=== PATIENT | male | born 1995 | race Caucasian/White ===

== ENCOUNTER 2016-12-20 02:15 | Emergency (ER) | payer SELFPAY ==
[2016-12-20] MEDS ORDERED: ALBUTEROL NEB 2.5 MG/3 ML INH ONE (02:18)
[2016-12-20] MEDS ORDERED: PROPARACAINE 0.5% OPHTH DROPS 15 ML ONE (02:35)
[2016-12-20] MEDS ORDERED: PROPARACAINE 0.5% OPHTH DROPS 15 ML EACHEYE STA (02:35)
[2016-12-20] MEDS ORDERED: IBUPROFEN 400 MG TABLET PO STA (02:57)
[2016-12-20] MEDS ORDERED: ERYTHROMYCIN OPHTH OINT 1 GM TUBE EACHEYE STA (02:57)
[2016-12-20] MEDS ORDERED: HYDROcod/ACET 5/325 Prepack 6 PO STA (02:57)
[2016-12-20] MEDS ORDERED: HYDROcod/ACET 5/325 Prepack 6 PO ONE (03:03)
[2016-12-20] MEDS ORDERED: IBUPROFEN 400 MG TABLET PO ONE (03:03)
[2016-12-20] MEDS ORDERED: ERYTHROMYCIN OPHTH OINT 1 GM TUBE ONE (03:04)
== END 2016-12-20 03:28 | disposition home or self-care (01) ==
DX: H16.133 Photokeratitis, bilateral (principal); W89.8XXA Exposure to other man-made visible and ultraviolet light, initial encounter; S05.01XA Injury of conjunctiva and corneal abrasion without foreign body, right eye, initial encounter; S05.02XA Injury of conjunctiva and corneal abrasion without foreign body, left eye, initial encounter; X58.XXXA Exposure to other specified factors, initial encounter; Y93.89 Activity, other specified; Y99.0 Civilian activity done for income or pay
CPT/HCPCS: 99283; A9270; J3490

== ENCOUNTER 2017-03-25 11:56 | Emergency (ER) | payer SELFPAY ==
[2017-03-25] MEDS ORDERED: IBUPROFEN 800 MG TABLET PO STA (12:47)
[2017-03-25] MEDS ORDERED: IPRATROPIUM/ALBUTEROL 3 ML NEB INH STA (12:47)
[2017-03-25] MEDS ORDERED: ONDANSETRON 4 MG/2 ML VIAL IVP STA (12:47)
[2017-03-25] MEDS ORDERED: SODIUM CHLORIDE 0.9% 1,000 ML IV ONE (12:47)
[2017-03-25] MEDS ORDERED: ONDANSETRON 4 MG/2 ML VIAL ONE (13:09)
[2017-03-25] MEDS ORDERED: IBUPROFEN 800 MG TABLET PO ONE (13:10)
[2017-03-25] MEDS ORDERED: ALBUTEROL NEB 2.5 MG/3 ML INH STA (13:38)
[2017-03-25] MEDS ORDERED: methylPREDNISolone SUCCINATE 125 MG/2 ML VIAL IVP STA (13:38)
[2017-03-25] MEDS ORDERED: cefTRIAXone 500 MG VIAL IVP STA (13:38)
[2017-03-25] MEDS ORDERED: cefTRIAXone 1 GM VIAL ONE (14:00)
[2017-03-25] MEDS ORDERED: methylPREDNISolone SUCCINATE 125 MG/2 ML VIAL IVP ONE (14:00)
== END 2017-03-25 14:59 | disposition home or self-care (01) ==
DX: J18.9 Pneumonia, unspecified organism (principal); J45.909 Unspecified asthma, uncomplicated; R09.02 Hypoxemia; E87.2 Acidosis
CPT/HCPCS: 36415; 71020; 80053; 83605; 83690; 85025; 87275; 87276; 94640; 96361; 96374; 96375; 99284; A9270; J7613; J7620

== ENCOUNTER 2017-06-05 21:54 | Emergency (ER) | payer OTHER ==
--- NOTE | 2017-06-05 22:09 | ED Physician Documentation ---
PD HPI HEENT - Stated complaint Stated Complaint: RINGING IN RT EAR - Chief complaint Chief Complaint: Heent - History obtained from History obtained from: Patient - History of Present Illness Timing - onset: How many weeks ago (1) Timing - duration: Weeks (1) Timing - details: Abrupt onset, Constant, Waxing and waning Pain level max: 0 Pain level now: 0 Location: Right ear Improves: Nothing Worsens: Other (no exacerbating factors) Associated symptoms: No: Fever, Congestion, Rhinorrhea, Headache Similar symptoms before: Has not had sx before Recently seen: Not recently seen - Additional information Additional information: after working in a particularly loud environment 1 week ago, patient experienced right ear ringing sound which has persisted since that time. He is able to sleep, but he has become increasingly distracted and uncomfortable with the persistence of the ringing sound. He has not been seen in outpatient setting ; says he has no doctor and no insurance. Denies specific injury, denies pain. Review of Systems Constitutional: reports: Sweats Ears: reports: Tinnitus/ringing. denies: Loss of hearing, Ear pain, Drainage/ discharge Nose: reports: Reviewed and negative PD PAST MEDICAL HISTORY - Past Medical History Cardiovascular: None Respiratory: Asthma Neuro: None Endocrine/Autoimmune: None GI: GERD : None HEENT: None Psych: None Musculoskeletal: None Derm: None - Past Surgical History Past Surgical History: No - Present Medications Home Medications: Ambulatory Orders Medication Instructions Recorded Confirmed Erythromycin Base [Erythromycin] 1 applic OP Q4H #1 tub 12/20/16 Doxycycline Hyclate 100 mg PO BID #14 tablet 03/25/17 predniSONE [Deltasone] 60 mg PO DAILY 5 Days 03/25/17 - Allergies Allergies/Adverse Reactions: Allergies Allergy/AdvReac Type Severity Reaction Status Date / Time shellfish derived Allergy Hives Verified 06/05/17 21:59 seafood Allergy Severe Hives Uncoded 06/05/17 21:59 - Social History Does the pt smoke?: No Smoking Status: Never smoker Does the pt drink ETOH?: No Does the pt have substance abuse?: No - Immunizations Immunizations are current?: Yes Immunizations: TDAP >10years/unknown - POLST Patient has POLST: No PD ED PE NORMAL - Vitals Vital signs reviewed: Yes - General General: Alert and oriented X 3, No acute distress, Well developed/nourished - HEENT HEENT: Ears normal Results - Vitals Vitals: Vital Signs - 24 hr 06/05/17 06/05/17 21:57 22:53 Temperature 36.5 C 36.4 C L Heart Rate 64 61 Respiratory 16 18 Rate Blood Pressure 106/63 114/57 L O2 Saturation 99 95 Oxygen O2 Source Room air PD MEDICAL DECISION MAKING - ED course Complexity details: considered differential, d/w patient ED course: No abnormality on exam, specifically bilateral TM appear normal without loss of landmarks, erythema, dullness, hemotympanum, abnormality of external auditory canals, and no evidence of TM perforation. I advised patient he needs to be seen by ENT, and that he would likely best accomplish this by being seen by a general practitioner first, such as at the [facility] or [facility]. Departure - Departure Disposition: 01 Home, Self Care Clinical Impression: Tinnitus of right ear Condition: Good Instructions: Tinnitus Follow-Up: [facility] [Provider Group] [facility] [Provider Group] Discharge Date/Time: 06/05/17 22:55
[2017-06-05 22:53] VITALS: BP 114/57
== END 2017-06-05 22:55 | disposition home or self-care (01) ==
LOC: ED 21:54
DX: H93.11 Tinnitus, right ear (principal)
CPT/HCPCS: 99281; 99283

== ENCOUNTER 2017-12-16 22:47 | Emergency (ER) | payer MEDICAID ==
[2017-12-16] MEDS ORDERED: FAMOTIDINE 20 MG TABLET PO STA (22:58)
[2017-12-16] MEDS ORDERED: LIDOCAINE VISCOUS 2% 15 ML UDC MM STA (22:58)
[2017-12-16] MEDS ORDERED: MAG HYDROX/AL HYDROX/SIMETH 30 ML UDC PO STA (22:58)
--- NOTE | 2017-12-16 23:09 | ED Physician Documentation ---
PD HPI ABD PAIN - Stated complaint Stated Complaint: MED REACTION - Chief complaint Chief Complaint: General - History obtained from History obtained from: Patient - History of Present Illness Timing - onset: How many days ago (2) Timing - details: Gradual onset, Still present Quality: Sharp, Stabbing Location: Epigastric Worsened by: Eating Associated symptoms: Nausea. No: Fever, Vomiting, Hematemesis Similar symptoms before: Has not had sx before Recently seen: Not recently seen - Additional information Additional information: Patient is a 21 year old male with no significant past medical history who is presenting to the emergency department for epigastric and substernal pain. Patient states that he has been on clindamycin for almost 2 weeks and over the last few days he has developed worsening substernal pain that feels like heartburn. Review of Systems Constitutional: denies: Fever, Chills Eyes: denies: Decreased vision Ears: denies: Ear pain, Drainage/discharge Throat: reports: Sore throat Cardiac: denies: Palpitations Respiratory: denies: Dyspnea, Cough, Wheezing GI: reports: Nausea. denies: Vomiting : reports: Reviewed and negative Skin: denies: Rash, Lesions Musculoskeletal: reports: Reviewed and negative Neurologic: reports: Reviewed and negative Psychiatric: reports: Reviewed and negative Immunocompromised: denies: Immunocompromised PD PAST MEDICAL HISTORY - Past Medical History Cardiovascular: None Respiratory: Asthma Neuro: None Endocrine/Autoimmune: None GI: GERD : None HEENT: None Psych: None Musculoskeletal: None Derm: None - Past Surgical History Past Surgical History: No - Present Medications Home Medications: Ambulatory Orders Medication Instructions Recorded Confirmed Erythromycin Base [Erythromycin] 1 applic OP Q4H #1 tub 12/20/16 Doxycycline Hyclate 100 mg PO BID #14 tablet 03/25/17 predniSONE [Deltasone] 60 mg PO DAILY 5 Days tablet 03/25/17 Omeprazole 20 mg PO DAILY #20 capsule. 12/16/17 - Allergies Allergies/Adverse Reactions: Allergies Allergy/AdvReac Type Severity Reaction Status Date / Time shellfish derived Allergy Hives Verified 12/16/17 22:57 seafood Allergy Severe Hives Uncoded 06/05/17 21:59 - Social History Does the pt smoke?: No Smoking Status: Never smoker Does the pt drink ETOH?: No Does the pt have substance abuse?: No - Immunizations Immunizations are current?: Yes Immunizations: TDAP >10years/unknown - POLST Patient has POLST: No PD ED PE NORMAL - Vitals Vital signs reviewed: Yes - General General: Well developed/nourished - HEENT HEENT: Atraumatic, PERRL - Neck Neck: Supple, no meningeal sign, No adenopathy - Cardiac Cardiac: RRR, No murmur - Respiratory Respiratory: No respiratory distress, Clear bilaterally - Abdomen Abdomen: Soft, Non tender, Non distended - Derm Derm: Normal color, Warm and dry, No rash - Extremities Extremities: No deformity, No edema - Neuro Neuro: Alert and oriented X 3, No motor deficit, No sensory deficit, Normal speech PD ED PE EXPANDED - General General: Alert, In Pain - HEENT HEENT: Pharyngeal erythema Results - Vitals Vitals: Vital Signs - 24 hr 12/16/17 12/16/17 22:54 23:26 Temperature 36.4 C L 36.8 C Heart Rate 64 70 Respiratory 17 18 Rate Blood Pressure 129/76 121/68 O2 Saturation 100 98 Oxygen O2 Source Room air PD MEDICAL DECISION MAKING - ED course Complexity details: reviewed old records, reviewed results, re-evaluated patient , considered differential, d/w patient ED course: patient was seen and examined at bedside. Patient's symptoms were likely secondary to pill esophagitis. Patient was treated with pepcid, maalox and viscous lidocaine with moderate relief. Patient's mouth showed no sign of infection and his clindamycin was discontinued. patient required no further work up and was stable for discharge with outpatient follow up. Departure - Departure Disposition: 01 Home, Self Care Clinical Impression: Pill esophagitis Condition: Good Instructions: Esophagitis Follow-Up: primary,care provider [Other] - Within 3 Days Prescriptions: Omeprazole 20 mg PO DAILY #20 capsule. Comments: Your symptoms today are being caused by pill esophagitis. You should stop taking the clindamycin. You will need to be on acid suppression therapy for the next 10 days or until your symptoms improve. You are being prescribed omeprazole. You can also take pepcid and maalox. You should follow up with your doctor if your symptoms persist. You should also avoid spicey and acidic foods (coffee, juice, alcohol) you may return to the emergency department at any time for new, worsening or uncontrollable symptoms. Discharge Date/Time: 12/16/17 23:25
[2017-12-16 23:38] VITALS: BP 121/68
== END 2017-12-16 23:25 | disposition home or self-care (01) ==
LOC: ED 22:47
DX: K20.8 Other esophagitis (principal)
CPT/HCPCS: 99283; A9270

== ENCOUNTER 2019-03-21 14:45 | Emergency (ER) | payer BC, MEDICAID ==
[2019-03-21 15:00] VITALS: BP 143/87
[2019-03-21] MEDS ORDERED: DEXAMETHASONE 10 MG/ML VIAL PO STA (15:30)
[2019-03-21] MEDS ORDERED: CHERRY SYRUP 10 ML UDC PO ONE (15:30)
--- NOTE | 2019-03-21 15:35 | ED Physician Documentation ---
PD HPI URI - Stated complaint Stated Complaint: RIB PX - Chief complaint Chief Complaint: Resp - History obtained from History obtained from: Patient - History of Present Illness Timing - onset: How many weeks ago (4) Timing duration: Weeks (4) Timing details: Gradual onset, Still present Associated symptoms: Nasal congestion, Rhinorrhea, Productive cough, Dyspnea. No: Fever Improves by: Rest Worsened by: Activity Similar symptoms before: Has not had sx before Recently seen: Not recently seen - Additional information Additional information: Previously well 23-year-old male has developed cough congestion over the past 4 weeks and he is now developed some pain along the margin of his ribs on the left side. He is coughing up yellow and green phlegm he has a lot of nasal drainage he has not had a fever with this. Review of Systems Constitutional: denies: Fever Eyes: denies: Decreased vision Ears: denies: Ear pain Nose: reports: Rhinorrhea / runny nose, Congestion Throat: denies: Sore throat Cardiac: denies: Chest pain / pressure, Palpitations Respiratory: reports: Dyspnea, Cough GI: reports: Abdominal Pain. denies: Nausea, Vomiting, Constipation, Diarrhea : denies: Dysuria, Frequency PD PAST MEDICAL HISTORY - Past Medical History Cardiovascular: None Respiratory: Asthma Endocrine/Autoimmune: None GI: GERD : None HEENT: None Psych: None Musculoskeletal: None Derm: None - Past Surgical History Past Surgical History: No - Present Medications Home Medications: Ambulatory Orders Medication Instructions Recorded Confirmed Azithromycin [Zithromax] 250 mg PO DAILY #6 tablet 03/21/19 Benzonatate [Tessalon Perle] 100 - 200 mg PO TID PRN #30 capsule 03/21/19 - Allergies Allergies/Adverse Reactions: Allergies Allergy/AdvReac Type Severity Reaction Status Date / Time shellfish derived Allergy Hives Verified 03/21/19 14:53 seafood Allergy Severe Hives Uncoded 03/21/19 14:53 - Social History Does the pt smoke?: No Smoking Status: Never smoker Does the pt drink ETOH?: No Does the pt have substance abuse?: No - Immunizations Immunizations are current?: Yes Immunizations: TDAP >10years/unknown - POLST Patient has POLST: No PD ED PE NORMAL - Vitals Vital signs reviewed: Yes (hypertensive ) - General General: Alert and oriented X 3, No acute distress, Well developed/nourished - HEENT HEENT: Atraumatic, PERRL, EOMI, Pharynx benign, Other (Left TM is inflamed with rounding of the umbo the right is clear. ) - Neck Neck: Supple, no meningeal sign, No bony TTP - Cardiac Cardiac: RRR, No murmur - Respiratory Respiratory: No respiratory distress, Clear bilaterally - Abdomen Abdomen: Soft, Other (mild tenderness to the upper abdominal wall on the left side at the insertion of the abdominal muscles to the lower rib cage .) - Back Back: No CVA TTP, No spinal TTP - Derm Derm: Normal color, Warm and dry, No rash - Extremities Extremities: No deformity, No edema - Neuro Neuro: Alert and oriented X 3, receiver dispatcher 2-12 intact, No motor deficit, No sensory deficit, Normal speech Eye Opening: Spontaneous Motor: Obeys Commands Verbal: Oriented GCS Score: 15 - Psych Psych: Normal mood, Normal affect Results - Vitals Vitals: Vital Signs - 24 hr 03/21/19 14:49 Temperature 36.5 C Heart Rate 76 Respiratory 16 Rate Blood Pressure 143/87 H O2 Saturation 100 Oxygen O2 Source Room air Procedures - Bedside sono Bedside sono by EMP: With use of bedside ultrasound the muscles of the abdominal wall are examined and they appear symmetric and without obvious mass or defect. There does not appear to be any peritoneal defect to suggest herniation. PD MEDICAL DECISION MAKING - ED course Complexity details: reviewed old records, considered differential, d/w patient ED course: 23 y/o male with pain to the upper rib area with a cough and OM on exam is given a dose of dexamethasone. We will treat the OM with zithromax and cough suppressant. 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 Departure - Departure Disposition: 01 Home, Self Care Clinical Impression: Otitis media Qualifiers: Otitis media type: suppurative Chronicity: acute Laterality: left Recurrence: non-recurrent Spontaneous tympanic membrane rupture: without spontaneous rupture Qualified Code(s): H66.002 - Acute suppurative otitis media without spontaneous rupture of ear drum, left ear Strain of abdominal wall Qualifiers: Encounter type: initial encounter Qualified Code(s): S39.011A - Strain of muscle, fascia and tendon of abdomen, initial encounter Condition: Stable Instructions: ED Strain Abdominal Muscle, ED Otitis Media Acute Adult Follow-Up: [facility] [Provider Group] Prescriptions: Azithromycin [Zithromax] 250 mg PO DAILY #6 tablet Benzonatate [Tessalon Perle] 100 - 200 mg PO TID PRN #30 capsule PRN Reason: Cough
== END 2019-03-21 15:50 | disposition home or self-care (01) ==
LOC: ED 14:45
DX: H66.002 Acute suppurative otitis media without spontaneous rupture of ear drum, left ear (principal); S39.011A Strain of muscle, fascia and tendon of abdomen, initial encounter; X58.XXXA Exposure to other specified factors, initial encounter
CPT/HCPCS: 99283; A9270

== ENCOUNTER 2021-08-30 12:31 | Outpatient (CLI) | payer SELFPAY | END 2021-08-30 12:32 | disposition home or self-care (01) | LOC: COV 12:31 | PROVIDERS: ATTEND Family Medicine | DX: R05.9 Cough, unspecified (principal); R09.81 Nasal congestion; J34.89 Other specified disorders of nose and nasal sinuses; Z20.822 Contact with and (suspected) exposure to COVID-19 ==